=== PATIENT | female | born 1970 | race Caucasian/White ===

== ENCOUNTER 2016-10-24 10:25 | Emergency (ER) | payer OTHER ==
--- NOTE | ~2016-10-24 | CON ---
PATIENT'S NAME: YUKI AVILEZ [facility] AGE: 46 Y [address] ROOM: [place] [address] LOCATION: [facility] ADMIT DATE: 10/24/2016 Consultation DISCHARGE DATE: 10/24/2016 FAMILY PHYSICIAN: PHYSICIAN, NO ATTENDING PHYSICIAN: Shila An DATE OF CONSULTATION: 10/24/2016 Time of Arrival: 1025 hours. Time of Evaluation/Seen: 1034 hours. IDENTIFICATION: A 46-year-old female. CHIEF COMPLAINT: Left ankle injury. HISTORY OF PRESENT ILLNESS: The patient said she has had some pain in the left lateral ankle and calf since Sunday, when she has felt like maybe it popped a little yesterday, she was turning with a bed and now has more severe pain to the lateral aspect. No fall or other injury. No numbness or tingling. No other problems or concerns. PAST MEDICAL HISTORY: ALLERGIES: NO KNOWN DRUG ALLERGIES. CURRENT MEDICATIONS: None. MEDICAL PROBLEMS: Denies. PAST SURGICAL HISTORY: 1. She has had a prior shoulder surgery. 2. section. SOCIAL HISTORY: The patient lives in [place]. 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 Tobacco use; half pack per day. Alcohol use; social. Drug use; denies. REVIEW OF SYSTEMS: PATIENT'S NAME: YUKI AVILEZ [facility] AGE: 46 Y [address] ROOM: [place] [address] LOCATION: [facility] ADMIT DATE: 10/24/2016 Consultation DISCHARGE DATE: 10/24/2016 FAMILY PHYSICIAN: PHYSICIAN, KEM ATTENDING PHYSICIAN: Shila An All systems are reviewed and negative other than what is noted in the HPI. FAMILY HISTORY: No pertinent family history. PHYSICAL EXAMINATION: VITAL SIGNS: Height 5 feet 6 inches, weight 66.3 kg. Blood pressure 148/81, pulse 95, respiratory rate 17, temperature 98.5, and saturations 97%. GENERAL: Pleasant female, in no acute distress. EXTREMITIES: Right lower extremity; full range of motion. No deformities noted. Good distal pulses. Sensation is intact. Left lower extremity; full range of motion. Good distal pulses. Sensation is intact to light touch. She does have some swelling posterior to the lateral malleolus and is tender to palpation. It appears to be a little bit posterior even to the peroneal tendon and not along the Achilles tendon. She has no tenderness along the Achilles tendon and she has full range of motion. IMAGING STUDIES: CT scan of the left ankle revealed a posterior lateral subcutaneous infiltration and swelling compatible with injury, but no fracture or evidence of tendon or ligament tear. IMPRESSION AND PLAN: Left ankle sprain. Plan: Boot walker, crutches and toe-touch weight bear as tolerated. Ice and elevate. Ibuprofen 600 mg 4 times daily with food and follow up with Dr. Arias in 1 to 3 days. Follow up sooner if any problems or concerns. She did attempt to go back to work but had significant pain so she will be discharged to home from work until she follows up on as [facility]. MD JESSICA KOENIG/rickie /[id number] d: 10/24/16 2338 t: 11/05/16 0833, CONSULTATION REPORT
== END 2016-10-24 11:25 | disposition disaster alternative care site (69) ==
LOC: GACC 10:25
DX: S93.402A Sprain of unspecified ligament of left ankle, initial encounter (principal); F17.210 Nicotine dependence, cigarettes, uncomplicated; Z98.890 Other specified postprocedural states; X50.9XXA Other and unspecified overexertion or strenuous movements or postures, initial encounter

== ENCOUNTER → 2016-12-06 | Outpatient (CLI) | payer OTHER | END | disposition disaster alternative care site (69) | LOC: GRAD 08:17 | DX: M25.511 Pain in right shoulder (principal); M75.91 Shoulder lesion, unspecified, right shoulder; S46.011A Strain of muscle(s) and tendon(s) of the rotator cuff of right shoulder, initial encounter; M77.8 Other enthesopathies, not elsewhere classified; X58.XXXA Exposure to other specified factors, initial encounter ==